=== PATIENT | male | born 1985 | race Caucasian/White ===

== ENCOUNTER 2017-05-07 12:50 | Emergency (ER) | payer BC ==
--- NOTE | 2017-05-07 13:50 | EDM.PDOC ---
ED HPI GENERAL MEDICAL PROBLEM - General Chief Complaint: Respiratory Problem Stated Complaint: cough Time Seen by Provider: 05/07/17 13:06 Source of Information: Reports: Patient History Limitations: Reports: No Limitations - History of Present Illness INITIAL COMMENTS - FREE TEXT/NARRATIVE: HISTORY AND PHYSICAL: History of present illness: Patient is a 31-year-old male who presents to the emergency room with complaints of cough, mild sore throat and body aches. He has subjective fever along with these symptoms for the past 3 days. He has no complaints of difficulty with eating or drinking. No GI/ complaints or concerns. Review of systems: As per history of present illness and below otherwise all systems reviewed and negative. Past medical history: As per history of present illness and as reviewed below otherwise noncontributory. Surgical history: As per history of present illness and as reviewed below otherwise noncontributory. Social history: No reported history of drug or alcohol abuse. Family history: As per history of present illness and as reviewed below otherwise noncontributory. Physical exam: Gen.: Well-developed and well-nourished 31-year-old male. Alert and oriented. Nontoxic appearing and in no acute distress. HEENT: Atraumatic, normocephalic, pupils reactive, negative for conjunctival pallor or scleral icterus, left tympanic membrane is erythematous with dull light reflex- no bulging. Right TM normal, mucous membranes moist, throat clear , neck supple, nontender, trachea midline. Lungs: Clear to auscultation, breath sounds equal bilaterally, chest nontender. Heart: S1S2, regular, negative for clicks, rubs, or JVD. Abdomen: Soft, nondistended, nontender. Negative for masses or hepatosplenomegaly. Negative for costovertebral tenderness. Pelvis: Stable nontender. Genitourinary: Deferred. Rectal: Deferred. Extremities: Atraumatic, negative for cords or calf pain. Neurovascular unremarkable. Neuro: Awake, alert, oriented. Cranial nerves II through XII unremarkable. Cerebellum unremarkable. Motor and sensory unremarkable throughout. Exam nonfocal. Labs and IV fluids were offered at this time (CBC, CMP, Influenza screen), he declined. Is willing to do a chest xray. Chest x-ray shows no evidence of pneumonia or infiltrate. Did note harsh loose cough. Patient does have an otitis media to the left. Will treat with Augmentin , pro-air and Phenergan with codeine. Encouraged him to follow up with his primary care provider in the next couple days. Supportive care measures were reviewed. Diagnostics: chest x-ray Therapeutics: [] Impression: Otitis media, left Brhonchi does Plan: 1. Please take your medications as directed. DO NOT take the Phenergan with Codiene while driving in needing to be functioning outside of the house as this will make you drowsy. You may take Tylenol and ibuprofen as needed for pain and fever management. 2. Drink plenty of fluids to prevent dehydration. Rest. 3. Follow-up with your primary caregiver in the next 1-2 days. Return to the ED as needed and as discussed. Definitive disposition and diagnosis as appropriate pending reevaluation and review of above. Duration: Day(s): Location: Reports: Head, Chest Generalized Pain Score (Numeric/FACES): 6 - Related Data Allergies Allergy/AdvReac Type Severity Reaction Status Date / Time No Known Allergies Allergy Verified 05/07/17 13:27 Home Meds: Home Meds . [No Known Home Meds] 02/18/14 [History] Past Medical History - Past Health History Medical/Surgical History: Denies Medical/Surgical History HEENT History: Reports: None Cardiovascular History: Reports: None Respiratory History: Reports: None Gastrointestinal History: Reports: None Genitourinary History: Reports: None Musculoskeletal History: Reports: None Neurological History: Reports: None Psychiatric History: Reports: None Endocrine/Metabolic History: Reports: None Hematologic History: Reports: None Immunologic History: Reports: None Oncologic (Cancer) History: Reports: None Dermatologic History: Reports: None - Infectious Disease History Infectious Disease History: Reports: None - Past Surgical History Head Surgeries/Procedures: Reports: None Male Surgical History: Reports: None Social & Family History - Tobacco Use Smoking Status *Q: Former Smoker Years of Tobacco use: 9 Used Tobacco, but Quit: Yes Month/Year Tobacco Last Used: 03/24/2017 Tobacco Use Comment: quit smoking 1 month ago Second Hand Smoke Exposure: No - Caffeine Use Caffeine Use: Reports: Coffee, Soda - Alcohol Use Days Per Week of Alcohol Use: 1 Number of Drinks Per Day: 1 Total Drinks Per Week: 1 - Recreational Drug Use Recreational Drug Use: No ED ROS GENERAL - Review of Systems Review Of Systems: ROS reveals no pertinent complaints other than HPI. ED EXAM, GENERAL - Physical Exam Exam: See Below (See dictation) Course - Vital Signs Last Recorded V/S: Last Vital Signs Temp 98.7 F 05/07/17 13:23 Pulse 120 H 05/07/17 13:23 Resp 20 05/07/17 13:23 BP 124/80 05/07/17 13:23 Pulse Ox 93 L 05/07/17 13:23 - Orders/Labs/Meds Orders: Active Orders 24 hr Category Date Time Status Chest 2V [CR] Stat Exams 05/07/17 13:06 Taken Departure - Departure Time of Disposition: 13:50 Disposition: Home, Self-Care 01 Clinical Impression: Bronchitis Otitis media Qualifiers: Otitis media type: suppurative Chronicity: acute Laterality: left Recurrence: not specified as recurrent Spontaneous tympanic membrane rupture: without spontaneous rupture Qualified Code(s): H66.002 - Acute suppurative otitis media without spontaneous rupture of ear drum, left ear - Discharge Information Instructions: Otitis Media, Adult, [id number], Acute Bronchitis, Adult, Easy- to-Read Referrals: PCP,None [Primary Care Provider] - Additional Instructions: My general discharge The following information is given to patients seen in the emergency department who are being discharged to home. This information is to outline your options for follow-up care. We provide all patients seen in our emergency department with a follow-up referral. The need for follow-up, as well as the timing and circumstances, are variable depending upon the specifics of your emergency department visit. If you don't have a primary care physician on staff, we will provide you with a referral. We always advise you to contact your personal physician following an emergency department visit to inform them of the circumstance of the visit and for follow-up with them and/or the need for any referrals to a consulting specialist. The emergency department will also refer you to a specialist when appropriate. This referral assures that you have the opportunity for follow-up care with a specialist. All of these measure are taken in an effort to provide you with optimal care, which includes your follow-up. Under all circumstances we always encourage you to contact your private physician who remains a resource for coordinating your care. When calling for follow-up care, please make the office aware that this follow-up is from your recent emergency room visit. If for any reason you are refused follow-up, please contact the [facility] at and asked to speak to the emergency department charge nurse. [facility] [address] [place] [id number] 1. Please take your medications as directed. DO NOT take the Phenergan with Codiene while driving in needing to be functioning outside of the house as this will make you drowsy. You may take Tylenol and ibuprofen as needed for pain and fever management. 2. Drink plenty of fluids to prevent dehydration. Rest. 3. Follow-up with your primary caregiver in the next 1-2 days. Return to the ED as needed and as discussed. - My Orders Last 24 Hours: My Active Orders 05/07/17 13:06 Chest 2V [CR] Stat - Assessment/Plan Last 24 Hours: My Active Orders 05/07/17 13:06 Chest 2V [CR] Stat
--- NOTE | 2017-05-09 15:44 | CR ---
EXAM DATE: 05/07/17 PATIENT'S AGE: 31 Patient: ROWENA BARKLEY Facility: [place], [place] Site . Site : [id number] Study: XRay Chest [id number] 1:19:32 PM Ordering Physician: Doctor Salinas Final Report: HISTORY: Shortness of breath, hemoptysis. FINDINGS: Two views of the chest are provided. The lungs are normally expanded and clear. No pleural effusion or pneumothorax. Cardiac silhouette size is within normal limits. Dictated by Navarro Dent MD @ May 07 2017 1:20PM (Electronic Signature) Report Signed by Proxy. BRONSON
== END 2017-05-07 14:15 | disposition home or self-care (01) ==
LOC: MW.ED 12:50
DX: J40 Bronchitis, not specified as acute or chronic (principal); H66.002 Acute suppurative otitis media without spontaneous rupture of ear drum, left ear; Z87.891 Personal history of nicotine dependence
CPT/HCPCS: 71046; 71046-26; 99283